=== PATIENT | female | born 1955 | race Caucasian/White ===

== ENCOUNTER 2021-07-03 07:08 | Day surgery (SDC) | payer BC ==
[~2021-07-03 07:08] MED LIST: Dextrose 5%-Lactated Ringers 1,000 ML IV SCH; Midazolam 1 MG/ML 2 ML SDV ONE; Propofol 200 MG/20 ML SDV ONE; fentaNYL 100 MCG/2 ML SDV ONE
[2021-07-03] MEDS ORDERED: Pantoprazole 40 MG Vial IVPUSH ONE (09:30)
== END 2021-07-03 09:58 | disposition home or self-care (01) ==
LOC: JP.SDS 07:08
PROVIDERS: ATTEND Surgery
DX: K29.50 Unspecified chronic gastritis without bleeding (principal); B96.81 Helicobacter pylori [H. pylori] as the cause of diseases classified elsewhere; K31.89 Other diseases of stomach and duodenum; K29.80 Duodenitis without bleeding; K44.9 Diaphragmatic hernia without obstruction or gangrene; K21.9 Gastro-esophageal reflux disease without esophagitis; K25.9 Gastric ulcer, unspecified as acute or chronic, without hemorrhage or perforation; E78.5 Hyperlipidemia, unspecified; E66.9 Obesity, unspecified
CPT/HCPCS: 87081; C9113; J2250; J2704; J3010; J7121

== ENCOUNTER 2024-07-22 08:24 | Day surgery (SDC) | payer BC ==
[2024-07-22] MEDS: Lactated Ringers 1,000 ML IV SCH (08:59)
[2024-07-22] MEDS ORDERED: fentaNYL 100 MCG/2 ML SDV ONE (09:53)
[2024-07-22] MEDS ORDERED: Propofol 200 MG/20 ML SDV ONE ×2 (09:53→10:42)
== END 2024-07-22 11:53 | disposition home or self-care (01) ==
LOC: JP.SDS 08:24
PROVIDERS: ATTEND Surgery
DX: Z12.11 Encounter for screening for malignant neoplasm of colon (principal); K57.30 Diverticulosis of large intestine without perforation or abscess without bleeding; K21.9 Gastro-esophageal reflux disease without esophagitis
CPT/HCPCS: 45378; J2704; J3010; J7120